=== PATIENT | female | born 1985 | race Two or more races ===

== ENCOUNTER 2023-02-09 09:45 | Emergency (ER) | payer MEDICAID, OTHER ==
[~2023-02-09] VITALS: Ht 165.1 cm; Wt 64.0 kg
[2023-02-09] MEDS ORDERED: MAG HYDROX/AL HYDROX/SIMETH 30 ML UDC PO ONE (10:00)
[2023-02-09] MEDS ORDERED: IV NS 0.9% 1,000 ML BAG IV ONE (10:00)
[2023-02-09] MEDS ORDERED: LIDOCAINE VISCOUS 2% UD 15 ML UDC MM ONE (10:00)
[2023-02-09] MEDS ORDERED: FAMOTIDINE/PF INJ 20 MG/2 ML VIAL IV ONE ×2 (10:00→10:11)
[2023-02-09] MEDS ORDERED: ONDANSETRON HCL/PF 4 MG/2 ML VIAL IVP ONE (10:00)
--- NOTE | 2023-02-09 10:01 | NUR ---
URINE COLLECTED AND SENT TO THE LAB
[2023-02-09] MEDS ORDERED: ONDANSETRON HCL/PF 4 MG/2 ML VIAL ONE (10:09)
[2023-02-09] MEDS ORDERED: MAG HYDROX/AL HYDROX/SIMETH 30 ML UDC ONE (10:09)
[2023-02-09] MEDS ORDERED: LIDOCAINE 2% JEL UROJET 10 ML MM ONE (10:10)
[2023-02-09 10:20] LABS: BASOPHILS % (AUTO) 0.3 % (0.0-2.0); EOSINOPHILS % (AUTO) 0.6 % (0.0-6.0); HEMATOCRIT 38 % (33-45); HEMOGLOBIN 12.1 g/dL (11.5-14.8); LYMPHOCYTES # (AUTO) 1.6 K/uL (0.8-4.8); LYMPHOCYTES % (AUTO) 20.5 % (20.0-44.0); MEAN CORPUSCULAR HGB CONC 32 g/dl (31.0-36.0); MEAN CORPUSCULAR VOLUME 81 fL (82-100); MONOCYTES # (AUTO) 0.4 K/uL (0.1-1.30); MONOCYTES % (AUTO) 5.4 % (2.0-12.0); NEUTROPHILS # (AUTO) 5.9 K/uL (1.8-8.9); NEUTROPHILS % (AUTO) 73.2 % (43.0-81.0); PLATELET COUNT (AUTO) 295 K/uL (150-450); RED BLOOD CELL COUNT(AUTO) 4.68 MIL/uL (4.0-5.2)
[2023-02-09 10:24] LABS: BILIRUBIN,URINE 1+ (NEGATIVE); COLOR,URINE YELLOW (YELLOW); LEUKOCYTE ESTERASE ,URINE NEGATIVE (NEGATIVE); NITRITE, URINE NEGATIVE (NEGATIVE); PROTEIN,URINE NEGATIVE (NEGATIVE); UGLUCOSE NEGATIVE (NEGATIVE); UROBILINOGEN,URINE 0.2 EU/dL (0.2)
--- NOTE | 2023-02-09 10:39 | NUR ---
PT TAKEN TO CT [facility]IA [facility]
[2023-02-09 10:43] LABS: BACTERIA,URINE Moderate /HPF (None Seen); RBC,URINE 0-2 /HPF (0-2); SQUAMOUS EPITHELIAL CELL,UR Moderate /HPF (None Seen); WBC,URINE NONE SEEN /HPF (0-3)
[2023-02-09 10:46] LABS: CALCIUM, SERUM 9.2 mg/dL (8.5-10.1); CREATININE 0.8 mg/dL (0.6-1.3); POTASSIUM 3.6 mmol/L (3.5-5.1)
[2023-02-09 10:58] LABS: ALBUMIN 4.1 g/dL (3.4-5.0); BILIRUBIN,DIRECT 0.1 mg/dL (0.0-0.2); BILIRUBIN,TOTAL 0.4 mg/dL (0.2-1.0)
--- NOTE | 2023-02-09 11:01 | NUR ---
THE PATIENT IS BACK FROM CT VIA [facility]
--- NOTE | 2023-02-09 11:02 | NUR ---
PT BACK FROM CT
--- NOTE | 2023-02-09 11:28 | NUR ---
PT SEEN BY DR JEFFERSON AWAITING DELICIA FURTHER ORDERS
[2023-02-09] MEDS ORDERED: ONDA4TAB5 PO (11:38)
[2023-02-09] MEDS ORDERED: FAMO-131 PO (11:38)
[2023-02-09 11:49] VITALS: BP 83/110
== END 2023-02-09 12:06 | disposition home or self-care (01) ==
LOC: ER 10:00
DX: R10.13 Epigastric pain (principal)
CPT/HCPCS: 99285; 74176; 96374; 71045; 96361; 96375; 85025; 80048; 87086; 83690; 80076; 84703; 81001; 36415; J3490 ×2; J2405; J7030